=== PATIENT | female | born 1995 | race Caucasian/White ===

== ENCOUNTER 2024-03-20 13:27 | Emergency (ER) | payer SELFPAY ==
[~2024-03-20] VITALS: Ht 165.1 cm; Wt 69.9 kg
[2024-03-20] MEDS ORDERED: PANT20TA2 PO (14:19)
[2024-03-20] MEDS ORDERED: ONDA4TAB5 PO (14:19)
[2024-03-20] MEDS ORDERED: SUCR1TAB PO (14:19)
[2024-03-20] MEDS ORDERED: MAG HYDROX/AL HYDROX/SIMETH 30 ML UDC ONE (14:24)
[2024-03-20] MEDS ORDERED: LIDOCAINE VISCOUS 2% UD 15 ML UDC ONE (14:24)
[2024-03-20] MEDS ORDERED: PANTOPRAZOLE 40 MG TABLET.DR PO ONE (14:24)
[2024-03-20] MEDS ORDERED: FAMOTIDINE (20 MG) 20 MG TABLET ONE (14:24)
[2024-03-20] MEDS: LIDOCAINE VISCOUS 2% UD 15 ML UDC MM ONE (14:29)
[2024-03-20] MEDS: MAG HYDROX/AL HYDROX/SIMETH 30 ML UDC PO ONE (14:29)
[2024-03-20] MEDS: FAMOTIDINE (20 MG) 20 MG TABLET PO ONE (14:30)
[2024-03-20] MEDS: PANTOPRAZOLE 40 MG TABLET.DR PO ONE (14:30)
[2024-03-20 14:42] VITALS: BP 114/85; TEMP 98; O2SAT 98
== END 2024-03-20 15:04 | disposition home or self-care (01) ==
LOC: ER 13:31
DX: R10.13 Epigastric pain (principal); R11.0 Nausea